=== PATIENT | female | born 1950 | race American Indian/Alaskan Native ===

== ENCOUNTER 2021-04-14 12:58 | Emergency (ER) | payer MEDICARE, MEDICAID ==
[2021-04-14 15:34] VITALS: BP 109/68
--- NOTE | 2021-04-14 15:55 | Event Note ---
ED Screening Note Date of service: 04/14/21 Time: 15:53 ED Screening Note: The patient was evaluated in the emergency department for symptoms described in the history of present illness. He/she was evaluated in the context of the global COVID-19 pandemic, which necessitated consideration that the patient might be at risk for infection with the virus that causes COVID-19. Institutional protocols and algorithms that pertain to the evaluation of patients at risk for COVID-19 are in a state of rapid change based on information released by regulatory bodies including the CDC and federal and state organizations. These policies and algorithms were followed during the patient's care in the emergency department. Please note that these policies, procedures and recommendations changed on a rapid basis. 70-year-old -Irish female with a significant past medical history of cholesterol anemia anxiety GERD seasonal allergies Crohn's disease presents to the emergency room complaining of sore throat vomiting dizziness cough posttussis emesis diaphragm hurts when she coughs and weakness. States is been going on for about 2 weeks. This initial assessment/diagnostic orders/clinical plan/treatment(s) is/are subject to change based on patients health status, clinical progression and re- assessment by fellow clinical providers in the ED. Further treatment and workup at subsequent clinical providers discretion. Patient/guardian urged not to elope from the ED as their condition may be serious if not clinically assessed and managed. Initial orders include: CBC CMP urinalysis chest x-ray
--- NOTE | 2021-04-14 16:25 | XRay Report ---
CHEST 2 VIEWS INDICATION / CLINICAL INFORMATION: sob,cough. COMPARISON: None available. FINDINGS: SUPPORT DEVICES: None. HEART / MEDIASTINUM: No significant abnormality. LUNGS / PLEURA: No significant pulmonary or pleural abnormality. No pneumothorax. No evidence of pneu monia or interstitial pulmonary edema. No pleural effusion. ADDITIONAL FINDINGS: No significant additional findings. IMPRESSION: 1. No significant abnormality. Signer Name: Sylvia Wu MD Signed: 04/14/2021 4:21 PM Workstation Name: [id number]
[2021-04-14 16:33] LABS: Bilirubin,Urine NEG (Negative); Blood,Urine NEG (Negative); Color,Urine Yellow (Yellow); Hyaline Casts,Urine 1 /LPF; Mucus,Urine FEW /HPF; Protein,Urine <15 mg/dL mg/dL (Negative); Urobilinogen,Urine < 2.0 mg/dL (<2.0)
[2021-04-14 16:56] LABS: Alanine Aminotransferase 13 units/L (7-56); Albumin 4.3 g/dL (3.9-5); BUN/Creatinine Ratio 10; Blood Urea Nitrogen 10 mg/dL (7-17); Calcium 9.9 mg/dL (8.4-10.2); Hemolysis Index 6
[2021-04-14 17:17] LABS: Basophils % (Auto) 0.6 % (0.0-1.8); Eosinophils # (Auto) 0.3 K/mm3 (0.0-0.4); Eosinophils % (Auto) 4.1 % (0.0-4.3); Hematocrit 37.6 % (30.3-42.9); Lymphocytes # (Auto) 2.7 K/mm3 (1.2-5.4); Mean Corpuscular HGB Conc 32 % (30-34); Mean Corpuscular Volume 88 fl (79-97); Monocytes # (Auto) 0.6 K/mm3 (0.0-0.8); Monocytes % (Auto) 7.5 % (0.0-7.3); Platelet Count 256 K/mm3 (140-440); Red Blood Count 4.29 M/mm3 (3.65-5.03); Red Cell Distribution Width 15.1 % (13.2-15.2)
--- NOTE | 2021-04-14 17:36 | Emergency Department Report ---
ED Shortness of Breath HPI - General Chief Complaint: Weakness Stated Complaint: DIZZY, COUGH,WEAK CHESTPAIN Time Seen by Provider: 04/14/21 15:49 Source: patient Mode of arrival: Ambulatory Limitations: No Limitations - History of Present Illness Initial Comments: Patient is 70 years old female with history of COPD and chronic disease. Patient presented to the ER complaining of shortness of breath for the last 4 days associated with dry cough, runny nose and congestion. Patient also stated that she has been having some nausea, vomiting and diarrhea. Patient stated that she is having generalized weakness. Patient denied any fever or chills. N o chest pain. She also denied any abdominal pain. Patient stated that she is fully vaccinated against COVID-19 second dose was in October. MD Complaint: shortness of breath, cough -: days(s) (4) Known History Of: COPD Context: recent URI Associated Symptoms: denies other symptoms, cough Treatments Prior to Arrival: none - Related Data Home Medications Medication Instructions Recorded Confirmed Last Taken Cyanocobalamin [Vitamin B-12] 1 ml IM QMONTH 07/18/13 07/19/13 07/14/13 Mesalamine [Pentasa] 1 tab PO DAILY 07/18/13 07/19/13 07/19/13 raNITIdine HCL [Zantac 300 MG TAB] 1 tab PO DAILY 07/18/13 07/19/13 07/19/13 ALPRAZolam [Alprazolam] 1 tab PO DAILY 07/19/13 07/19/13 07/19/13 Albuterol Sulfate [Proventil HFA] 1 inhalation INHALATION PRN 07/19/13 07/19/13 06/15/13 Carisoprodol 1 tab PO DAILY 07/19/13 07/19/13 07/19/13 Ferrous Sulfate 1 tab PO DAILY 07/19/13 07/19/13 07/19/13 Tramadol HCl 1 tab PO DAILY 07/19/13 07/19/13 07/17/13 predniSONE [Deltasone] 1 tab PO PRN 07/19/13 07/19/13 06/28/13 Allergies Allergy/AdvReac Type Severity Reaction Status Date / Time No Known Allergies Allergy Unverified 07/18/13 15:43 ED Review of Systems ROS: Stated complaint: DIZZY, COUGH,WEAK CHESTPAIN Other details as noted in HPI Comment: All other systems reviewed and negative Constitutional: denies: chills, fever Respiratory: cough, shortness of breath, SOB with exertion, SOB at rest, wheezing. denies: orthopnea Cardiovascular: dyspnea on exertion. denies: chest pain, palpitations Gastrointestinal: nausea, vomiting, diarrhea. denies: abdominal pain, constipation, hematemesis, melena, hematochezia Musculoskeletal: denies: back pain Neurological: weakness. denies: headache, numbness, paresthesias, confusion, abnormal gait ED Past Medical Hx - Past Medical History Hx GERD: Yes Hx Arthritis: Yes Hx Headaches / Migraines: Yes (HX OF MIGRAINES) Hx Asthma: Yes Additional medical history: crohns, chronic pain - Surgical History Hx Cholecystectomy: Yes (1982) - Social History Smoking Status: Never Smoker - Medications Home Medications: Home Medications Medication Instructions Recorded Confirmed Last Taken Type Cyanocobalamin [Vitamin B-12] 1 ml IM QMONTH 07/18/13 07/19/13 07/14/13 History Mesalamine [Pentasa] 1 tab PO DAILY 07/18/13 07/19/13 07/19/13 History raNITIdine HCL [Zantac 300 MG TAB] 1 tab PO DAILY 07/18/13 07/19/13 07/19/13 History ALPRAZolam [Alprazolam] 1 tab PO DAILY 07/19/13 07/19/13 07/19/13 History Albuterol Sulfate [Proventil HFA] 1 inhalation INHALATION PRN 07/19/13 07/19/13 06/15/13 History Carisoprodol 1 tab PO DAILY 07/19/13 07/19/13 07/19/13 History Ferrous Sulfate 1 tab PO DAILY 07/19/13 07/19/13 07/19/13 History Tramadol HCl 1 tab PO DAILY 07/19/13 07/19/13 07/17/13 History predniSONE [Deltasone] 1 tab PO PRN 07/19/13 07/19/13 06/28/13 History ED Physical Exam - General Limitations: No Limitations General appearance: alert, in no apparent distress - Head Head exam: Present: atraumatic, normocephalic, normal inspection - Eye Eye exam: Present: normal appearance, PERRL - ENT ENT exam: Present: mucous membranes dry - Neck Neck exam: Present: normal inspection, full ROM. Absent: tenderness, meningismus - Respiratory Respiratory exam: Present: wheezes. Absent: respiratory distress, rales, rhonchi, chest wall tenderness, accessory muscle use, decreased breath sounds, prolonged expiratory - Cardiovascular Cardiovascular Exam: Present: regular rate, normal rhythm, normal heart sounds - GI/Abdominal GI/Abdominal exam: Present: soft, normal bowel sounds. Absent: distended, tenderness, guarding, rebound, rigid, organomegaly, mass, bruit, pulsatile mass, hernia - Extremities Exam Extremities exam: Present: normal inspection, full ROM, normal capillary refill. Absent: tenderness, pedal edema, joint swelling, calf tenderness - Back Exam Back exam: Present: normal inspection, full ROM. Absent: CVA tenderness (R), CVA tenderness (L) - Neurological Exam Neurological exam: Present: alert, oriented X3, CN II-XII intact, normal gait, reflexes normal. Absent: motor sensory deficit - Psychiatric Psychiatric exam: Present: normal mood - Skin Skin exam: Present: warm, intact, normal color ED Course Vital Signs 04/14/21 15:30 Temperature 97.9 F Pulse Rate 80 Respiratory 18 Rate Blood Pressure 109/68 O2 Sat by Pulse 97 Oximetry ED Medical Decision Making - Lab Data Result diagrams: 04/14/21 16:10 04/14/21 16:10 - Radiology Data Radiology results: report reviewed - Medical Decision Making Patient is 70 years old female with history of COPD and chronic disease. Patient presented to the ER complaining of shortness of breath for the last 4 days associated with dry cough, runny nose and congestion. Patient also stated that she has been having some nausea, vomiting and diarrhea. Patient stated that she is having generalized weakness. Patient denied any fever or chills. No chest pain. She also denied any abdominal pain. Patient stated that she is fully vaccinated against COVID-19 second dose was in October. Patient found to be with diffuse wheezing. Patient received albuterol, Atrovent and Solu-Medrol. Patient also received Zofran and normal saline. Patient stated that she is feeling much better. No vomiting observed. Patient given prescription for prednisone, albuterol and Zofran and advised to follow-up with her primary doctor in the next 2 to 3 days and to return to the ER if she develop any new symptoms. Critical care attestation.: If time is entered above; I have spent that time in minutes in the direct care of this critically ill patient, excluding procedure time. ED Disposition Clinical Impression: COPD exacerbation, Acute nausea with nonbilious vomiting, Viral syndrome Disposition: 01 HOME / SELF CARE / HOMELESS Is pt being admited?: No Condition: Stable Instructions: Chronic Obstructive Pulmonary Disease (ED), Nausea and Vomiting, Adult, Chronic Obstructive Pulmonary Disease Exacerbation, [id number] Referrals: PRIMARY CARE,MD [Primary Care Provider] - 3-5 Days
[2021-04-14] MEDS: methylPREDNISolone Sod Succinate 125 MG/2 ML INJ IV ONE ×2 (17:57→18:25)
[2021-04-14] MEDS: IPRATROPIUM 0.02% NEBU 2.5 ML IH ONE ×2 (17:57→18:24)
[2021-04-14] MEDS: ONDANSETRON 4 MG/2 ML INJ IV ONE ×2 (17:57→18:25)
[2021-04-14] MEDS: ALBUTEROL 2.5 MG/3 ML NEBU IH ONE ×2 (17:57→18:24)
[2021-04-14] MEDS: SODIUM CHLORIDE 0.9% 1000 ML 1,000 ML IV ONE ×2 (17:58→18:25)
== END 2021-04-14 19:43 | disposition home or self-care (01) ==
LOC: ED 12:58
DX: J44.1 Chronic obstructive pulmonary disease with (acute) exacerbation (principal); R11.2 Nausea with vomiting, unspecified; B34.9 Viral infection, unspecified; K21.9 Gastro-esophageal reflux disease without esophagitis; M19.90 Unspecified osteoarthritis, unspecified site; G43.909 Migraine, unspecified, not intractable, without status migrainosus; K50.90 Crohn's disease, unspecified, without complications; G89.29 Other chronic pain; Z98.890 Other specified postprocedural states
CPT/HCPCS: 36415; 71046; 80053; 81001; 83880; 85025; 94640; 96361; 96374; 96375; 99284; J2405; J2930; J7030